=== PATIENT | female | born 1955 | race Caucasian/White ===

== ENCOUNTER 2017-12-16 08:39 | Day surgery (SDC) | payer OTHER, SELFPAY | END 2017-12-16 22:42 | disposition home or self-care (01) | LOC: MOI MAM 08:39 | PROC: 0HBT3ZX Excision of Right Breast, Percutaneous Approach, Diagnostic (ICD-10-PCS; principal; 2017-12-16) | DX: D05.01 Lobular carcinoma in situ of right breast (principal); N62 Hypertrophy of breast | CPT/HCPCS: 19081; 88305; 88341; 88342 ==

== ENCOUNTER 2020-12-27 09:23 | Day surgery (SDC) | payer OTHER ==
[~2020-12-27] VITALS: Ht 157.5 cm; Wt 103.9 kg
[~2020-12-27 09:23] MED LIST: ALBU90OI INH; FURO20 PO; GABA100 PO; NEBI10 PO; POTCHL20ER PO
[2021-05-09] MEDS ORDERED: VITAMIN D310 MC4 PO (11:24)
[2021-05-09] MEDS ORDERED: GABA100 PO (11:25)
[2021-05-09] MEDS ORDERED: MULTI-VITAMIN1 EAC2 PO (11:25)
[2021-05-09] MEDS ORDERED: ELEMENTAL ZINC30 MG PO (11:26)
[2021-05-09] MEDS ORDERED: AMLO5 PO (11:26)
== END 2020-12-27 13:04 | disposition home or self-care (01) ==
LOC: ORSCSDS 09:23
PROVIDERS: Internal Medicine Gastroenterology
PROC: 0DBN8ZX Excision of Sigmoid Colon, Via Natural or Artificial Opening Endoscopic, Diagnostic (ICD-10-PCS; principal; 2020-12-27 10:45)
PROC: 3E0H8KZ Introduction of Other Diagnostic Substance into Lower GI, Via Natural or Artificial Opening Endoscopic (ICD-10-PCS; principal; 2020-12-27 10:45)
PROC: 0DBM8ZX Excision of Descending Colon, Via Natural or Artificial Opening Endoscopic, Diagnostic (ICD-10-PCS; principal; 2020-12-27 10:45)
PROC: 0DJ08ZZ Inspection of Upper Intestinal Tract, Via Natural or Artificial Opening Endoscopic (ICD-10-PCS; principal; 2020-12-27 10:45)
PROC: 0DBL8ZX Excision of Transverse Colon, Via Natural or Artificial Opening Endoscopic, Diagnostic (ICD-10-PCS; principal; 2020-12-27 10:45)
PROC: 0DBK8ZX Excision of Ascending Colon, Via Natural or Artificial Opening Endoscopic, Diagnostic (ICD-10-PCS; principal; 2020-12-27 10:45)
DX: R19.5 Other fecal abnormalities (principal); C18.4 Malignant neoplasm of transverse colon; D12.2 Benign neoplasm of ascending colon; D12.4 Benign neoplasm of descending colon; D12.5 Benign neoplasm of sigmoid colon; Z86.010 Personal history of colon polyps; K57.30 Diverticulosis of large intestine without perforation or abscess without bleeding; K64.8 Other hemorrhoids; K21.9 Gastro-esophageal reflux disease without esophagitis; I10 Essential (primary) hypertension; Z87.891 Personal history of nicotine dependence; E66.01 Morbid (severe) obesity due to excess calories; Z68.41 Body mass index [BMI] 40.0-44.9, adult; Z79.899 Other long term (current) drug therapy
CPT/HCPCS: 88305; J2704; J7120

== ENCOUNTER 2021-05-15 06:00 | Inpatient (IN) | payer OTHER, MEDICARE ==
[~2021-05-15] VITALS: Ht 154.9 cm; Wt 101.5 kg
[~2021-05-15 06:00] MED LIST changes: +AMLO5 PO; +ELEMENTAL ZINC30 MG PO; +MULTI-VITAMIN1 EAC2 PO; +VITAMIN D310 MC4 PO
[2021-05-15] MEDS ORDERED: CALCIUM MAG ZINC (06:49)
[2021-05-15] MEDS ORDERED: FURO20 PO (07:12)
--- NOTE | 2021-05-15 07:48 | NUR ---
History, Chart, Medications and Allergies reviewed before start of procedure. RING TO RIGHT FINGER TAPED. PT TO OR#1 AT 0745. REASONS- STILL DOING PT CARE/NEW ORDERS. ANESTHESIOLOGIST NEW ORDERS OBTAINED AT 0723, MEDS CROSSED OVER FROM PHARMACY AND STARTED GIVING AT 0731. CHIEF OF STAFF DOCTOR AT BEDSIDE AT 0735 FOR REPORT, AFTER PT FINISHED ALBUTEROL NEB, CHLORHEXIDINE WIPE AND CLIP PREP DONE, THEN PT BACK TO OR #1.
--- NOTE | 2021-05-15 16:39 | NUR ---
DR ZAMORANO BY TO SEE PT FLUSHED HER L EYE STATED IT HAS BEEN BOTHERING HER SINCE SURGERY DR ZAMORANO SAID WE CAN FLUSH IT FOR COMFORT AND PLACE AN ICE PACK ALSO PLACED BANDAID TO ALL 4 STERI STRIPS SCANT AMOUNT OF OOZING NOTED
--- NOTE | 2021-05-15 18:33 | NUR ---
MEDS GIVEN WITH SIP OF WATER ALSO FLUSHED PT EYE WITH SALINE PT STATED THAT FEELS BETTER ALSO ASKED PT IF SHE WOULD LIKE TO TRY SOME JUICE STATED NO
--- NOTE | 2021-05-16 04:36 | NUR ---
SHIFT SUMMARY POD#1 ROBOTIC PARTIAL COLECTOMY. AAOX4. DISCOMFORT CONTROLLED WITH FENTANYL CLINICAL RN. NO NAUSEA/EMESIS. LAP ABD SITES X5 WITH GAUZE/BANDAIDS C/D/I. TOLERATING SMALL AMOUNTS OF CLEARS + ICE CHIPS. GREEN SECURE/DRAINING CLEAR YELLOW. PT RESTED WELL T/O NIGHT, AWAKENS EASILY WITH VERBAL STIMULI. IVF + ABX PER ORDERS. NO ACUTE CHANGES OVER NIGHT. PT CURRENTLY RESTING IN BED WITH CALL LIGHT IN REACH.
[2021-05-16 04:40] LABS: BASOPHILS ABSOLUTE AUTO 0.01 K/mm3 (0.00-0.23); BASOPHILS PERCENT AUTO 0 % (0-2); EOSINOPHILS PERCENT AUTO 0 % (0-6); Hematocrit 34.7 % (33.0-51.0); Hemoglobin 11.4 g/dL (11.5-16.0); IMMATURE GRAN ABSOLUTE AUTO 0.05 K/mm3 (0.00-0.10); IMMATURE GRAN PERCENT AUTO 1 % (0-1); LYMPHOCYTES ABSOLUTE AUTO 0.81 K/mm3 (0.84-5.20); LYMPHOCYTES PERCENT AUTO 10 % (21-46); MONOCYTES ABSOLUTE AUTO 0.66 K/mm3 (0.16-1.47); MONOCYTES PERCENT AUTO 8 % (4-13); Mean Corpuscular HGB 29.5 pg (26.0-34.0); Mean Corpuscular HGB Conc 32.9 g/dL (31.5-36.5); Mean Corpuscular Volume 90 fL (80-100); Mean Platelet Volume 10.3 fL (9.1-12.4); NEUTROPHILS ABSOLUTE AUTO 7.02 K/mm3 (1.96-9.15); NEUTROPHILS PERCENT AUTO 82 % (41-73); Platelet Count 217 K/mm3 (150-400); RDW Coefficient Variation 12.9 % (11.7-14.2); Red Blood Cell Count 3.86 M/mm3 (3.80-5.20); White Blood Cell Count 8.55 K/mm3 (4.00-11.30)
[2021-05-16 05:28] LABS: Anion Gap 5 mmol/L (6-16); Blood Urea Nitrogen 8 mg/dL (8-24); Bun/Creatinine Ratio 12.3 (12.0-20.0); CO2, Blood 26 mmol/L (21-32); Calcium, Blood 7.9 mg/dL (8.5-10.1); Chloride, Blood 111 mmol/L (98-108); Creatinine, Blood 0.65 mg/dL (0.40-1.00); Glomerular Filtration Rate >60 (60-); Glucose, Blood 127 mg/dL (70-99); Potassium, Blood 3.4 mmol/L (3.5-5.5); Sodium, Blood 142 mmol/L (136-145)
--- NOTE | 2021-05-16 19:16 | NUR ---
SHIFT SUMMARY PT A&OX4, VSS, POD1 TASNE[place] PART COLECTOMY, DRESSINGS CDI, 2LNC OXYGEN, VOIDING WELL, MADDISON PO. PT REP "BLOATING" EDU/ENC TO DECREASE INTAKE, DENIES PASSING FLATUS, UP TO CHAIR T/O SHIFT. DEEP BREATHING AND I.S. EDU & ENC T/O SHIFT. REPORT TO VICTOR HUGO PEREZ.
--- NOTE | 2021-05-17 04:26 | NUR ---
SHIFT SUMMARY POD#2 ROBOTIC RIGHT HEMICOLECTOMY. AAOX4. DISCOMFORT CONTROLLED WITH FENTANYL FITNESS FLOOR ATTENDANT. NO NAUSEA/EMESIS. ABD INCISIONS WITH BANDAIDS + GAUZE C/D/I. HYPERACTIVE BTX4. PT HAVING FLATUS + MULTIPLE BMs THIS SHIFT. SBA UP TO RESTROOM. IVF PER ORDERS. PT PLACED ON 1.5L VIA NC WHILE RESTING, NOW 93-97%, WILL WEAN TOLERATED. PT CURRENTY RESTING WELL IN BED WITH CALL LIGHT IN REACH.
--- NOTE | 2021-05-17 18:46 | NUR ---
SHIFT SUMMARY PT A&OX4, VSS, POD2 TASNEEM PART COLECTOMY, STERIS/DRESSING CDI, ABD BINDER ON, PASSING FLATUS, BMS+. AMBULATING INDEPENDENTLY IN ROOM/HALLWAY/BRP; UP TO CHAIR T/O SHIFT. PAIN MANAGED WITH 5 MG OXY AND TYLENOL. MADDISON PO FULL LIQUID DIET. VOIDING WELL. WILL REPORT TO ONCOMING NOC RN.
--- NOTE | 2021-05-18 04:31 | NUR ---
SHIFT SUMMARY: PT POD#3 FOR A ROBOTIC PARTIAL COLECTOMY. STERI STRIPS AND GAUZE DRESSING C/D/I. LOWER ABD DRESSING CHANGED IN BEGINNING OF SHIFT. ABD BINDER IN PLACE. PAIN BEING MANAGED WITH TYLENOL. PT REPORTS SHE DOES NOT LIKE THE WAY OXYCODONE MAKES HER FEEL. PT TOLERATING WATER OVER NIGHT. DENIES N/V. AMBULATING IN ROOM INDEPENDENTLY. VOIDING WELL. PT REPORTS PASSING FLATUS. HAD A LIQUID BM LAST NIGHT. MAROON COLORED. POSSIBLE DISCHARGE ON THURSDAY.
--- NOTE | 2021-05-18 17:27 | NUR ---
SUMMARY: PT IS POD 3 PARTIAL R COLECTOMY. A/O, VSS. PT HAS DONE WELL TODAY, INDEPENDENT IN ROOM. REPORTS FLATUS AND BM TODAY. DIET ADVANCED TO REG AND PT IS TOLERATING. SURGICAL SITES WNL. PT REPORTS PAIN WELL MANAGED WITH NARCO. NO ACUTE CONCERNS AT THIS TIME, PLAN IS TO DC TOMORROW. WILL PASS REPORT TO ALBERTA PEREZ
--- NOTE | 2021-05-19 05:29 | NUR ---
POD 4 S/P COLECTOMY. PT VSS T/O NIGHT. PT APPEARS TO HAVE OCC APNEIC EPISODES WHILE SLEEPING, 2L02 NC PLACED TO KEEP SATS >90%. INCISIONS CDI. PT MED FOR PAIN X1 W/REP RELIEF. PT MADDISON REG PO, NO C/O N/V, REP +FLATUS AND BM. PT UP INDEP IN ROOM, MADDISON WELL.
[2021-05-19] MEDS ORDERED: Norco 5-325 Ta1 EACH PO (09:26)
--- NOTE | 2021-05-19 11:04 | NUR ---
DISCHARGE: PACKET PRINTED AND PT EDUCATED. PT GIVEN SCRIPT. LEFT UNIT VIA WHEELCHAIR WITH THIS RN AT 1100
== END 2021-05-19 10:50 | disposition home or self-care (01) | DRG 330 ==
LOC: SURS 06:00 → PRE IP 07:30 → SURS 14:41
PROVIDERS: ADMIT Surgery
PROC: 0DBF4ZZ Excision of Right Large Intestine, Percutaneous Endoscopic Approach (ICD-10-PCS; principal; 2021-05-15 07:30)
DX: C18.4 Malignant neoplasm of transverse colon (principal); I50.32 Chronic diastolic (congestive) heart failure; Z68.41 Body mass index [BMI] 40.0-44.9, adult; Z20.822 Contact with and (suspected) exposure to COVID-19; I11.0 Hypertensive heart disease with heart failure; E66.9 Obesity, unspecified; K21.9 Gastro-esophageal reflux disease without esophagitis; J44.9 Chronic obstructive pulmonary disease, unspecified; Z87.891 Personal history of nicotine dependence; Z98.890 Other specified postprocedural states; Z88.5 Allergy status to narcotic agent; Z88.8 Allergy status to other drugs, medicaments and biological substances; Z79.899 Other long term (current) drug therapy
CPT/HCPCS: 36415; 80048; 85025; 86850; 86900; 86901; 88309; 94762; A9270; J0330; J0690; J1100; J1650; J1885; J2370; J2405; J2704; J3010; J7120

== ENCOUNTER 2021-05-25 11:15 | Emergency (ER) | payer OTHER, MEDICARE ==
[~2021-05-25] VITALS: Ht 154.9 cm; Wt 104.8 kg
[~2021-05-25 11:15] MED LIST changes: +CALCIUM MAG ZINC; +Norco 5-325 Ta1 EACH PO
[2021-05-25 11:58] LABS: BASOPHILS ABSOLUTE AUTO 0.05 K/mm3 (0.00-0.23); BASOPHILS PERCENT AUTO 1 % (0-2); EOSINOPHILS ABSOLUTE AUTO 0.08 K/mm3 (0.00-0.68); EOSINOPHILS PERCENT AUTO 2 % (0-6); Hematocrit 35.8 % (33.0-51.0); Hemoglobin 11.8 g/dL (11.5-16.0); IMMATURE GRAN ABSOLUTE AUTO 0.04 K/mm3 (0.00-0.10); IMMATURE GRAN PERCENT AUTO 1 % (0-1); LYMPHOCYTES ABSOLUTE AUTO 0.65 K/mm3 (0.84-5.20); LYMPHOCYTES PERCENT AUTO 15 % (21-46); MONOCYTES ABSOLUTE AUTO 0.61 K/mm3 (0.16-1.47); MONOCYTES PERCENT AUTO 14 % (4-13); Mean Corpuscular HGB 29.6 pg (26.0-34.0); Mean Corpuscular Volume 90 fL (80-100); Mean Platelet Volume 10.6 fL (9.1-12.4); NEUTROPHILS ABSOLUTE AUTO 2.96 K/mm3 (1.96-9.15); NEUTROPHILS PERCENT AUTO 68 % (41-73); Platelet Count 263 K/mm3 (150-400); RDW Coefficient Variation 12.7 % (11.7-14.2); RDW Standard Deviation 41.8 fL (35.1-46.3); Red Blood Cell Count 3.99 M/mm3 (3.80-5.20); White Blood Cell Count 4.39 K/mm3 (4.00-11.30)
[2021-05-25 12:14] LABS: Alanine Aminotransfer (ALT/SGP 113 U/L (12-78); Albumin, Blood 3.3 g/dL (3.4-5.0); Albumin/Globulin Ratio 0.9 (0.8-1.8); Alk Phos 136 U/L (50-136); Anion Gap 6 mmol/L (6-16); Aspartate Aminotrans (AST/SGOT 36 U/L (12-37); Bilirubin, Total 0.5 mg/dL (0.1-1.0); Blood Urea Nitrogen 7 mg/dL (8-24); Bun/Creatinine Ratio 8.6 (12.0-20.0); CO2, Blood 25 mmol/L (21-32); Calcium, Blood 8.7 mg/dL (8.5-10.1); Chloride, Blood 110 mmol/L (98-108); Creatinine, Blood 0.81 mg/dL (0.40-1.00); Globulin, Blood 3.7 g/dL (2.2-4.0); Glomerular Filtration Rate >60 (60-); Glucose, Blood 119 mg/dL (70-99); Potassium, Blood 3.9 mmol/L (3.5-5.5); Sodium, Blood 141 mmol/L (136-145)
[2021-05-25 15:05] LABS: Source, Urine Clean Catch
[2021-05-25 15:07] LABS: Appearance, Urine Clear (Clear); Bilirubin, Urine Neg (Neg); Blood, Urine Neg (Neg); Glucose Qualitative, Urine Neg (Neg); Ketones, Urine Neg (Neg); Leukocyte Esterase, Urine 1+ (Neg); Nitrite, Urine Neg (Neg); Protein, Urine Neg (Neg); Urobilinogen, Urine NORM (Normal); pH, Urine 6.5 (5.0-8.0)
[2021-05-25 15:30] LABS: Color, Urine Pale Yellow (P-Yellow)
[2021-05-25 15:31] LABS: Bacteria Mod /hpf; Red Blood Cells, Urine Not Seen /hpf (0-2); Squamous Epithelial Cells Mod /hpf (Few)
== END 2021-05-25 16:20 | disposition home or self-care (01) ==
LOC: ER 11:15
PROVIDERS: Physician Assistant
DX: U07.1 COVID-19 (principal); Z87.891 Personal history of nicotine dependence; Z79.899 Other long term (current) drug therapy
CPT/HCPCS: 36415; 80053; 81001; 83690; 85025; 87086; 99283; J2405

== ENCOUNTER 2021-05-31 11:10 | Emergency (ER) | payer OTHER, MEDICARE ==
[~2021-05-31] VITALS: Ht 154.9 cm; Wt 90.7 kg
[2021-05-31 16:15] LABS: Hematocrit 37.2 % (33.0-51.0); Hemoglobin 12.1 g/dL (11.5-16.0); Mean Corpuscular HGB 28.9 pg (26.0-34.0); Mean Corpuscular HGB Conc 32.5 g/dL (31.5-36.5); Mean Corpuscular Volume 89 fL (80-100); Mean Platelet Volume 11.1 fL (9.1-12.4); Platelet Count 180 K/mm3 (150-400); RDW Coefficient Variation 12.5 % (11.7-14.2); Red Blood Cell Count 4.18 M/mm3 (3.80-5.20)
[2021-05-31 16:31] LABS: Alanine Aminotransfer (ALT/SGP 54 U/L (12-78); Albumin, Blood 3.3 g/dL (3.4-5.0); Albumin/Globulin Ratio 0.8 (0.8-1.8); Alk Phos 93 U/L (50-136); Anion Gap 7 mmol/L (6-16); Aspartate Aminotrans (AST/SGOT 38 U/L (12-37); Bilirubin, Total 0.5 mg/dL (0.1-1.0); Blood Urea Nitrogen 10 mg/dL (8-24); Bun/Creatinine Ratio 11.5 (12.0-20.0); CO2, Blood 25 mmol/L (21-32); Calcium, Blood 8.3 mg/dL (8.5-10.1); Chloride, Blood 103 mmol/L (98-108); Creatinine, Blood 0.87 mg/dL (0.40-1.00); Glomerular Filtration Rate >60 (60-); Glucose, Blood 105 mg/dL (70-99); Potassium, Blood 3.5 mmol/L (3.5-5.5); Sodium, Blood 135 mmol/L (136-145); Total Protein, Blood 7.3 g/dL (6.4-8.2)
[2021-05-31 16:37] LABS: BAND PERCENT MAN 3 % (0-8); BASOPHILS PERCENT MAN 0 % (0-2); EOSINOPHILS PERCENT MAN 0 % (0-6); LYMPHOCYTES % ATYPICAL MANUAL 5 % (0-0); LYMPHOCYTES ABSOLUTE MAN 0.94 K/mm3 (0.84-5.20); LYMPHOCYTES PERCENT MAN 16 % (21-46); MONOCYTES ABSOLUTE MAN 0.22 K/mm3 (0.16-1.47); MONOCYTES PERCENT MAN 5 % (4-13); NEUTROPHILS ABSOLUTE MAN 3.33 K/mm3 (1.96-9.15); SEG NEUTROPHILS PERCENT MAN 71 % (41-73); TOTAL CELLS COUNTED 100
[2021-05-31] MEDS ORDERED: IBUP600 PO (17:47)
== END 2021-05-31 18:39 | disposition home or self-care (01) ==
LOC: ER 11:10
PROVIDERS: Student in an Organized Health Care Education/Training Program
DX: U07.1 COVID-19 (principal); J12.82 Pneumonia due to coronavirus disease 2019; E86.0 Dehydration; Z88.5 Allergy status to narcotic agent
CPT/HCPCS: 36415; 71045; 80053; 85025; 93005; 93010; 96374; 96375; 99284-25; J1885; J2405; J7030; M0243; Q0243